=== PATIENT | female | born 1955 | race American Indian/Alaskan Native ===

== ENCOUNTER 2016-07-08 17:02 | Emergency (ER) | payer MEDICARE ==
[2016-07-08] MEDS ORDERED: NORCO 5/325 PO ONE (19:01)
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
[2016-07-08 20:03] VITALS: BP 140/79
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
== END 2016-07-08 19:45 | disposition home or self-care (01) ==
LOC: ED 17:02
DX: M25.511 Pain in right shoulder (principal); K21.9 Gastro-esophageal reflux disease without esophagitis; M19.90 Unspecified osteoarthritis, unspecified site; V49.9XXA Car occupant (driver) (passenger) injured in unspecified traffic accident, initial encounter; Y92.488 Other paved roadways as the place of occurrence of the external cause; Y93.89 Activity, other specified; Y99.8 Other external cause status

== ENCOUNTER 2016-11-10 18:50 | Emergency (ER) | payer MEDICARE ==
[2016-11-10] MEDS ORDERED: ALUM-MAG HYDROX-SIMETH 200-200-20MG/5ML PO ONE (19:04)
[2016-11-10] MEDS ORDERED: LIDOCAINE VISCOUS 2% PO ONE (19:04)
[2016-11-11 00:49] VITALS: BP 141/91
--- NOTE | 2016-11-11 02:43 | Emergency Department Report ---
- General Chief Complaint: Sore Throat Stated Complaint: SORE THROAT/ COUGH Time Seen by Provider: 11/11/16 00:27 Source: patient Mode of arrival: Ambulatory Limitations: No Limitations - History of Present Illness Initial Comments: 61-year-old female past medical history hypertension, hyperlipidemia presents with complaint of one week of persistent nonproductive cough. Patient states she is experiencing sinus congestion sore throat ear popping and upper airway congestion. Taking [id number] cough syrup and anti-inflammatories with minimal relief of symptoms. States she has multiple sick contacts at home with similar symptoms. Denies chills states she may have had fever earlier this week. Denies being a smoker. Speaking in full sentences no audible wheezing or stridor. Denies any recent travel. MD Complaint: fever, cough, sore throat Onset/Timin -: week(s) Severity: moderate Improves With: NSAID, OTC cold medicine Associated Symptoms: sore throat, cough - Related Data Home Medications Medication Instructions Recorded Confirmed Last Taken Acyclovir 400 mg PO PRN PRN 09/09/13 09/16/13 09/01/13 Fluticasone Propionate [Flonase] 100 mcg NS QDAY 09/09/13 09/16/13 09/15/13 Gabapentin Enacarbil [Horizant] 600 mg PO BID 09/09/13 09/16/13 09/15/13 Levothyroxine [Synthroid] 0.5 mg PO QAM 09/09/13 09/16/13 09/15/13 Oxybutynin [Ditropan] 5 mg PO BID 09/09/13 09/16/13 09/15/13 Ranitidine HCl [Ranitidine 150mg 150 mg PO BID 09/09/13 09/16/13 09/15/13 Cap] traMADol [Ultram] 50 mg PO Q6HR PRN 09/09/13 09/16/13 09/15/13 Previous Rx's Medication Instructions Recorded Last Taken Type Enoxaparin [Lovenox] 40 mg SQ QDAY #14 syringe 09/17/13 Unknown Rx Oxycodone HCl/Acetaminophen 1 each PO Q6HR PRN #60 tablet 09/17/13 Unknown Rx [Percocet 7.5-325 mg] HYDROcodone/APAP 5-325 [[place] 1 each PO Q6HR PRN #14 tablet 04/16/17 Unknown Rx 5/325] ALBUTEROL Inhaler [ProAir HFA 2 puff IH QID PRN #1 inhalation 11/11/16 Unknown Rx Inhaler] Azithromycin [Zithromax Z-TIGRE] 250 mg PO QDAY #6 tablet 11/11/16 Unknown Rx Brompheniramine/Pseudoephed/Dm 10 ml PO Q4H PRN #1 bottle 11/11/16 Unknown Rx [Bromfed Dm Cough Syrup] Ibuprofen [Motrin] 800 mg PO Q8HR PRN #25 tablet 11/11/16 Unknown Rx Allergies Allergy/AdvReac Type Severity Reaction Status Date / Time No Known Allergies Allergy Verified 11/10/16 18:56 ED Review of Systems ROS: Stated complaint: SORE THROAT/ COUGH Other details as noted in HPI Constitutional: denies: chills, fever Eyes: denies: eye pain, eye discharge, vision change ENT: throat pain. denies: ear pain Respiratory: no symptoms reported, cough. denies: shortness of breath, wheezing Cardiovascular: denies: chest pain, palpitations Endocrine: no symptoms reported Gastrointestinal: denies: abdominal pain, nausea, diarrhea Genitourinary: denies: urgency, dysuria, discharge Musculoskeletal: denies: back pain, joint swelling, arthralgia Skin: denies: rash, lesions Neurological: denies: headache, weakness, paresthesias Psychiatric: denies: anxiety, depression Hematological/Lymphatic: denies: easy bleeding, easy bruising ED Past Medical Hx - Past Medical History Hx Hypertension: No Hx Congestive Heart Failure: No Hx Diabetes: No Hx GERD: Yes (2010) Hx Liver Disease: No Hx Renal Disease: No Hx Sickle Cell Disease: No (SICKLE CELL TRAIT) Hx Arthritis: Yes Hx Seizures: No Hx Asthma: No Hx COPD: No Additional medical history: thyroid. genital herpes. overactive bladder - Surgical History Additional Surgical History: right knee replacement, x1, Right ankle repair with instrumentation - Social History Smoking Status: Former Smoker Substance Use Type: None - Medications Home Medications: Home Medications Medication Instructions Recorded Confirmed Last Taken Type Acyclovir 400 mg PO PRN PRN 09/09/13 09/16/13 09/01/13 History Fluticasone Propionate [Flonase] 100 mcg NS QDAY 09/09/13 09/16/13 09/15/13 History Gabapentin Enacarbil [Horizant] 600 mg PO BID 09/09/13 09/16/13 09/15/13 History Levothyroxine [Synthroid] 0.5 mg PO QAM 09/09/13 09/16/13 09/15/13 History Oxybutynin [Ditropan] 5 mg PO BID 09/09/13 09/16/13 09/15/13 History Ranitidine HCl [Ranitidine 150mg 150 mg PO BID 09/09/13 09/16/13 09/15/13 History Cap] traMADol [Ultram] 50 mg PO Q6HR PRN 09/09/13 09/16/13 09/15/13 History Enoxaparin [Lovenox] 40 mg SQ QDAY #14 syringe 09/17/13 Unknown Rx Oxycodone HCl/Acetaminophen 1 each PO Q6HR PRN #60 tablet 09/17/13 Unknown Rx [Percocet 7.5-325 mg] HYDROcodone/APAP 5-325 [[place] 1 each PO Q6HR PRN #14 tablet 07/08/16 Unknown Rx 5/325] ALBUTEROL Inhaler [ProAir HFA 2 puff IH QID PRN #1 inhalation 11/11/16 Unknown Rx Inhaler] Azithromycin [Zithromax Z-TIGRE] 250 mg PO QDAY #6 tablet 11/11/16 Unknown Rx Brompheniramine/Pseudoephed/Dm 10 ml PO Q4H PRN #1 bottle 11/11/16 Unknown Rx [Bromfed Dm Cough Syrup] Ibuprofen [Motrin] 800 mg PO Q8HR PRN #25 tablet 11/11/16 Unknown Rx ED Physical Exam - General Limitations: No Limitations General appearance: alert, in no apparent distress - Head Head exam: Present: atraumatic, normocephalic - Eye Eye exam: Present: normal appearance, PERRL, EOMI - ENT ENT exam: Present: mucous membranes moist - Neck Neck exam: Present: normal inspection, full ROM - Respiratory Respiratory exam: Present: normal lung sounds bilaterally. Absent: respiratory distress - Cardiovascular Cardiovascular Exam: Present: regular rate, normal rhythm. Absent: systolic murmur, diastolic murmur, rubs, gallop - GI/Abdominal GI/Abdominal exam: Present: soft, normal bowel sounds - Extremities Exam Extremities exam: Present: normal inspection - Back Exam Back exam: Present: normal inspection - Neurological Exam Neurological exam: Present: alert, oriented X3, CN II-XII intact, normal gait - Psychiatric Psychiatric exam: Present: normal affect, normal mood - Skin Skin exam: Present: warm, dry, intact, normal color. Absent: rash ED Course Vital Signs 11/10/16 11/11/16 18:59 00:48 Temperature 98.5 F 98.6 F Pulse Rate 62 77 Respiratory 17 18 Rate Blood Pressure 135/88 Blood Pressure 141/91 [Left] O2 Sat by Pulse 99 100 Oximetry ED Medical Decision Making - Medical Decision Making A/P: URI/possible bronchitis 1-Bromfed when necessary, albuterol inhaler, Motrin when necessary, Z-Tigre 2-follow up with primary care 3-chest x-ray negative, strep swab negative 4- patient's vital signs are stable and she is tolerating by mouth. Critical care attestation.: If time is entered above; I have spent that time in minutes in the direct care of this critically ill patient, excluding procedure time. ED Disposition Clinical Impression: Upper respiratory infection Qualifiers: URI type: unspecified URI Qualified Code(s): J06.9 - Acute upper respiratory infection, unspecified Acute bronchitis Qualifiers: Bronchitis organism: unspecified organism Qualified Code(s): J20.9 - Acute bronchitis, unspecified Disposition: DC-01 TO HOME OR SELFCARE Is pt being admited?: No Does the pt Need Aspirin: No Condition: Stable Instructions: Acute Bronchitis (ED) Prescriptions: ALBUTEROL Inhaler [ProAir HFA Inhaler] 2 puff IH QID PRN #1 inhalation PRN Reason: Shortness Of Breath Azithromycin [Zithromax Z-TIGRE] 250 mg PO QDAY #6 tablet Brompheniramine/Pseudoephed/Dm [Bromfed Dm Cough Syrup] 10 ml PO Q4H PRN #1 bottle PRN Reason: Cough Ibuprofen [Motrin] 800 mg PO Q8HR PRN #25 tablet PRN Reason: Pain Referrals: [facility] [Provider Group] - 3-5 Days [facility] [Outside] - 3-5 Days Forms: Accompanied Note, Work/School Release Form(ED) Time of Disposition: 02:43
--- NOTE | 2016-11-11 09:26 | XRay Report ---
ROUTINE CHEST, TWO VIEWS: HISTORY: Cough, sore throat. The trachea, heart, mediastinal contour, lung smith and bony thorax are unremarkable. IMPRESSION: Unremarkable chest x-ray.
== END 2016-11-11 00:49 | disposition home or self-care (01) ==
LOC: ED 18:50
DX: J06.9 Acute upper respiratory infection, unspecified (principal); J02.9 Acute pharyngitis, unspecified; K21.9 Gastro-esophageal reflux disease without esophagitis; Z87.891 Personal history of nicotine dependence
CPT/HCPCS: 71020; 87116; 87430